=== PATIENT | male | born 1940 | race Caucasian/White ===

== ENCOUNTER 2017-08-12 12:22 | Emergency (ER) | payer MEDICARE, BC ==
[~2017-08-12] VITALS: Ht 180.3 cm; Wt 93.2 kg
[2017-08-12 12:25] VITALS: Ht 180.3 cm; Wt 93.2 kg
[2017-08-12] MEDS ORDERED: COUMADIN5 MG PO (12:26)
[2017-08-12] MEDS ORDERED: MOBIC7.5 MG PO (12:26)
[2017-08-12] MEDS ORDERED: LISINOPRIL5 MG PO (12:28)
[2017-08-12] MEDS ORDERED: prostate medication (12:28)
[2017-08-12] MEDS ORDERED: PRILOSEC2.5 MG PO (12:29)
[2017-08-12 12:52] LABS: BASOPHILS 0.3 % (0-2); EOSINOPHILS 0.7 % (0-7); HEMATOCRIT 47.3 % (42.0-54.0); HEMOGLOBIN 16.3 g/dL (13.5-17.5); IMMATURE GRANULOCYTES 0.3 % (0-5); LYMPHOCYTES 15.3 % (15-50); MCH 31.8 pg (26.0-34.0); MCHC 34.5 g/dL (31.0-37.0); MCV 92.2 fL (80.0-100.0); MEAN PLATELET VOLUME 9.5 fL (7.4-10.4); MONOCYTES 9.6 % (2-11); NEUTROPHILS 73.8 % (40-80); PLATELET COUNT 139 10x3/uL (130-400); RBC 5.13 10x6/uL (4.20-6.10); RDW 12.4 % (11.5-14.5)
[2017-08-12 13:02] LABS: APTT 35.7 SECONDS (22.8-39.4); INR 2.78 (0.85-1.17); PROTIME 28.7 SECONDS (11.6-15.0)
[2017-08-12 13:09] LABS: ALBUMIN 3.9 g/dL (3.4-5.0); ALKALINE PHOSPHATASE 75 U/L (46-116); ALT (SGPT) 28 U/L (10-68); BILIRUBIN - TOTAL 0.63 mg/dL (0.2-1.3); CALC OSMOLALITY 282 mosm/kg (275-300); CALCIUM 9.8 mg/dL (8.5-10.1); CHLORIDE - SERUM 103 mmol/L (98-107); GLUCOSE 152 mg/dL (74-106); POTASSIUM - SERUM 4.7 mmol/L (3.5-5.1); PROTEIN - SERUM 7.1 g/dL (6.4-8.2); SODIUM 139 mmol/L (136-145); UREA NITROGEN 18 mg/dL (7-18); eGFR NON AFRICAN AMERICAN 77 mL/min (90-120)
[2017-08-12 13:18] LABS: CKMB 3.9 U/L (0.0-3.6); TROPONIN-I < 0.017 ng/mL (0.000-0.060)
[2017-08-12 13:30] LABS: LIPASE 107 U/L (73-393); PRO BNP 232 pg/mL (0-450)
[2017-08-12 14:59] LABS: APPEARANCE CLEAR (CLEAR); BILIRUBIN NEGATIVE (NEGATIVE); COLOR YELLOW (YELLOW); GLUCOSE NEGATIVE (NEGATIVE); KETONE SMALL mg/dL (NEGATIVE); NITRITE NEGATIVE (NEGATIVE); PROTEIN NEGATIVE (NEGATIVE); UROBILINOGEN NORMAL (NORMAL)
[2017-08-12 16:23] VITALS: BP 148/91
== END 2017-08-12 16:24 | disposition home or self-care (01) ==
LOC: D.ER 12:22
PROVIDERS: Family Medicine
DX: R11.10 Vomiting, unspecified (principal); X30.XXXA Exposure to excessive natural heat, initial encounter; Y93.89 Activity, other specified; Y92.89 Other specified places as the place of occurrence of the external cause; R42 Dizziness and giddiness; I10 Essential (primary) hypertension; K21.9 Gastro-esophageal reflux disease without esophagitis